=== PATIENT | male | born 1980 | race Two or more races ===

== ENCOUNTER 2024-10-08 22:12 | Emergency (ER) | payer MEDICAID ==
[~2024-10-08] VITALS: Ht 182.9 cm; Wt 75.7 kg
[2024-10-08 23:20] LABS: BASOPHILS # (AUTO) 0.1 X10'3 (0-0.2); BASOPHILS % (AUTO) 1.1 % (0-1); EOSINOPHILS # (AUTO) 0.1 X10'3 (0-0.9); EOSINOPHILS % (AUTO) 1.7 % (0-6); HEMATOCRIT 40.6 % (42.0-52.0); HEMOGLOBIN 13.9 g/dl (14.0-17.9); LYMPHOCYTES # (AUTO) 1.7 X10'3 (1.1-4.8); LYMPHOCYTES % (AUTO) 25.1 % (21-51); MEAN CORPUSCULAR HEMOGLOBIN 31.3 PG (27.0-31.0); MEAN CORPUSCULAR HGB CONC 34.2 g/dL (33.0-36.5); MEAN CORPUSCULAR VOLUME 91.6 FL (78-98); MEAN PLATELET VOLUME 9.2 FL (7.4-10.4); MONOCYTES # (AUTO) 0.8 X10'3 (0-0.9); NEUTROPHILS # (AUTO) 4.2 X10'3 (1.8-7.7); NEUTROPHILS % (AUTO) 61.1 % (42-75); PLATELET COUNT 473 X10'3 (140-440); RED BLOOD COUNT 4.43 X10'6 (4.70-6.10); WHITE BLOOD COUNT 6.8 X10'3 (4.5-11.0)
[2024-10-08 23:35] LABS: ALANINE AMINOTRANSFERASE 16 U/L (12-78); ALBUMIN 3.3 G/DL (3.4-5.0); ALBUMIN/GLOBULIN RATIO 0.6 (1.1-1.5); ALKALINE PHOSPHATASE 137 IU/L (46-116); ANION GAP 10 (8-16); ASPARTATE AMINO TRANSFERASE 10 U/L (10-37); BILIRUBIN,TOTAL 0.5 MG/DL (0.1-1.0); BLOOD UREA NITROGEN 13 MG/DL (7-18); BUN/CREATININE RATIO 12.9 (10.0-20.0); CALCIUM 9.2 MG/DL (8.5-10.1); CHLORIDE 94 MMOL/L (99-107); CREATININE 1.01 MG/DL (0.60-1.10); LIPASE 80 U/L (16-77); SODIUM 131 MMOL/L (135-145); TOTAL CARBON DIOXIDE 26.7 MMOL/L (24-32); TOTAL PROTEIN 9.3 G/DL (6.4-8.2); eCRCL 102 ML/MIN; eGFR 81 ML/MIN
[2024-10-08 23:43] LABS: GLUCOSE 428 MG/DL (70-104)
[2024-10-09 00:35] LABS: APTT 28 SECONDS (22-32); INR 1.1 INR; PROTHROMBIN TIME 11.1 SECONDS (9.0-12.0)
[2024-10-09] MEDS: normal saline 1000ML IV soln IVB ONE (00:49)
[2024-10-09 02:04] VITALS: BP 156/116; PULSE 89; RESP 16; TEMP 98.5; O2SAT 99
== END 2024-10-09 02:06 | disposition home or self-care (01) ==
LOC: ER 22:13
DX: D73.4 Cyst of spleen (principal); A49.1 Streptococcal infection, unspecified site
CPT/HCPCS: 36415; 74176; 80053; 83690; 85025; 85610; 85730; 96360; 99285; J7030